=== PATIENT | female | born 1965 | race American Indian/Alaskan Native ===

== ENCOUNTER 2017-01-20 20:01 | Emergency (ER) | payer BC ==
[2017-01-20] MEDS ORDERED: TORADOL IM ONE (21:59)
--- NOTE | 2017-01-20 22:03 | Emergency Department Report ---
HPI - General Chief Complaint: Fall Time Seen by Provider: 01/20/17 21:47 - HPI HPI: 50-year-old female presents today with neck, right shoulder and right arm pain post-fall that occurred yesterday at 8 PM. Patient states that she slipped on water in her restroom. Denies head injury or loss of consciousness. Denies numbness, weakness, paresthesias. Denies bowel or bladder incontinence. Describes her pain as 9 out of 10 constant, throbbing, aching stiffness. He tried Motrin with minimal relief. Denies fever, chills, nausea, vomiting, chest pain, shortness of breath, abdominal pain. ED Past Medical Hx - Past Medical History Previous Medical History?: Yes Additional medical history: RSD / CARPAL TUNNEL - Surgical History Past Surgical History?: Yes Additional Surgical History: HYSTERECTOMY - Social History Smoking Status: Never Smoker Substance Use Type: Alcohol - Medications Home Medications: Home Medications Medication Instructions Recorded Confirmed Last Taken Type Naproxen [Naprosyn] 500 mg PO BID #30 tablet 01/20/17 Unknown Rx methOCARBAMOL [Robaxin TAB] 500 mg PO Q6H PRN #20 tablet 01/20/17 Unknown Rx ED Review of Systems ROS: Stated complaint: FALL Other details as noted in HPI Constitutional: denies: chills, fever, malaise Eyes: denies: eye pain ENT: denies: ear pain, throat pain, congestion Respiratory: denies: cough, wheezing Cardiovascular: denies: chest pain, palpitations Endocrine: no symptoms reported Gastrointestinal: denies: abdominal pain, nausea, vomiting Musculoskeletal: back pain Neurological: denies: headache, weakness, numbness, paresthesias Physical Exam - Physical Exam Vital Signs: Vital Signs 01/20/17 20:17 Temperature 97.8 F Pulse Rate 89 Respiratory 18 Rate Blood Pressure 153/95 O2 Sat by Pulse 98 Oximetry Physical Exam: GENERAL: The patient is well-developed and well-nourished. Patient is in NAD. HEAD: Normocephalic. Atraumatic. NECK: Full range of motion. No midline tenderness to palpation. Positive for right-sided paraspinal tenderness as well as tenderness over the right trapezius muscle group. RIGHT SHOULDER: Full range of motion. No tenderness to palpation over shoulder joint. Normal sensation. 2 point discrimination intact. Peripheral pulses intact. Capillary refill less than 2 seconds. CHEST/LUNGS: Clear to auscultation throughout. HEART/CARDIOVASCULAR: Regular rate and rhythm. ABDOMEN: Abdomen is soft, nontender. No guarding or rebound tenderness. NEURO: Alert and oriented 3, normal gait, fluid speech, EOMs intact, normal facial sensation, strength exam 5/5 upper and lower extremities, GCS equals 15 ED Course Vital Signs 01/20/17 20:17 Temperature 97.8 F Pulse Rate 89 Respiratory 18 Rate Blood Pressure 153/95 O2 Sat by Pulse 98 Oximetry ED Medical Decision Making - Lab Data Vital Signs 01/20/17 20:17 Temperature 97.8 F Pulse Rate 89 Respiratory 18 Rate Blood Pressure 153/95 O2 Sat by Pulse 98 Oximetry - Medical Decision Making 51-year-old female presents today with right-sided neck and shoulder pain post fall yesterday. Patient is driving home to her was only given Toradol today. Patient is in no acute distress at this time. She will be discharged home and is encouraged to follow up with a primary care provider. She will be sent home on Robaxin and naproxen and is encouraged to return to the emergency room for any worsening symptoms. Critical care attestation.: If time is entered above; I have spent that time in minutes in the direct care of this critically ill patient, excluding procedure time. ED Disposition Clinical Impression: Fall Qualifiers: Encounter type: initial encounter Qualified Code(s): W19.XXXA - Unspecified fall, initial encounter Cervical strain Qualifiers: Encounter type: initial encounter Qualified Code(s): S16.1XXA - Strain of muscle, fascia and tendon at neck level, initial encounter Shoulder strain Qualifiers: Encounter type: initial encounter Laterality: right Qualified Code(s): S46.911A - Strain of unspecified muscle, fascia and tendon at shoulder and upper arm level, right arm, initial encounter Disposition: DISCHARGED TO HOME OR SELFCARE Is pt being admited?: No Does the pt Need Aspirin: No Condition: Stable Instructions: Muscle Strain (ED) Additional Instructions: Follow-up with primary care provider. Return to the emergency department if symptoms worsen. Prescriptions: methOCARBAMOL [Robaxin TAB] 500 mg PO Q6H PRN #20 tablet PRN Reason: Pain Naproxen [Naprosyn] 500 mg PO BID #30 tablet Referrals: PRIMARY CARE, [Primary Care Provider] - 3-5 Days [facility] [Outside] - 3-5 Days Forms: Work/School Release Form(ED) Time of Disposition: 22:07
[2017-01-20 22:23] VITALS: BP 137/84
== END 2017-01-20 22:09 | disposition home or self-care (01) ==
LOC: ED 20:01
DX: S16.1XXA Strain of muscle, fascia and tendon at neck level, initial encounter (principal); S46.911A Strain of unspecified muscle, fascia and tendon at shoulder and upper arm level, right arm, initial encounter; W18.30XA Fall on same level, unspecified, initial encounter; Y93.9 Activity, unspecified; Y92.9 Unspecified place or not applicable; Y99.9 Unspecified external cause status
CPT/HCPCS: 96372; 99282; J1885